=== PATIENT | female | born 1995 | race American Indian/Alaskan Native ===

== ENCOUNTER 2016-12-10 10:47 | Emergency (ER) | payer MEDICAID ==
[2016-12-10 11:23] VITALS: BP 117/76
[2016-12-10 12:04] LABS: Bilirubin,Urine NEG (Negative); Blood,Urine NEG (Negative); Ketones,Urine NEG (Negative); Leukocyte Esterase,Urine NEG (Negative); Mucus,Urine FEW /HPF; Nitrite,Urine NEG (Negative); Protein,Urine <15 mg/dL mg/dL (Negative); Urobilinogen,Urine < 2.0 mg/dL (<2.0)
--- NOTE | 2016-12-10 12:59 | Emergency Department Report ---
ED Headache HPI - General Chief Complaint: Headache Stated Complaint: 8 WKS W/HEAD AND LOWER BACK PAIN Time Seen by Provider: 12/10/16 12:10 - History of Present Illness Initial Comments: Patient comes into the ER today with complaints of a headache and achy back since yesterday. Patient denies any injury. Patient does states that she is 7 or 8 weeks but denies any abdominal pain, vaginal bleeding, discharge. Patient describes the headache as pressure and points to her frontal region for the area of pain. Patient has not taken anything for her discomfort because she was unsure as to what she can take being . Allergies/Adverse Reactions: Allergies Fish Containing Products Allergy (Verified 12/10/16 11:19) Anaphylaxis lactose Allergy (Verified 12/10/16 11:19) Vomiting shellfish derived Allergy (Verified 12/10/16 11:19) Anaphylaxis Home Medications: Ambulatory Orders Acetaminophen [Acetaminophen TAB] 500 mg PO Q4HR PRN #20 tablet 12/10/16 Amoxicillin 1,000 mg PO BID #40 capsule 12/10/16 ED Review of Systems ROS: Stated complaint: 8 WKS W/HEAD AND LOWER BACK PAIN Other details as noted in HPI Constitutional: chills. denies: fever Eyes: denies: eye pain, eye discharge, vision change ENT: congestion. denies: ear pain, throat pain, dental pain, hearing loss, epistaxis Respiratory: denies: cough, shortness of breath, SOB with exertion, wheezing Cardiovascular: denies: chest pain, palpitations Endocrine: no symptoms reported Gastrointestinal: denies: abdominal pain, nausea, vomiting, diarrhea, constipation, hematemesis Genitourinary: denies: urgency, dysuria, hematuria, discharge Musculoskeletal: back pain. denies: joint swelling, arthralgia Skin: denies: rash, lesions Neurological: denies: headache, weakness, paresthesias Psychiatric: denies: anxiety, depression Hematological/Lymphatic: denies: easy bleeding, easy bruising ED Past Medical Hx - Past Medical History Previous Medical History?: No - Surgical History Past Surgical History?: No - Social History Smoking Status: Never Smoker Substance Use Type: None - Medications Home Medications: Home Medications Medication Instructions Recorded Confirmed Last Taken Type Acetaminophen [Acetaminophen TAB] 500 mg PO Q4HR PRN #20 tablet 12/10/16 Unknown Rx Amoxicillin 1,000 mg PO BID #40 capsule 12/10/16 Unknown Rx ED Physical Exam - General Limitations: No Limitations General appearance: alert, in no apparent distress - Head Head exam: Present: atraumatic, normocephalic, normal inspection, other ( bilateral frontal and maxillary tenderness to percussion) - Eye Eye exam: Present: normal appearance, PERRL, EOMI. Absent: conjunctival injection, periorbital swelling, periorbital tenderness Pupils: Present: normal accommodation - ENT ENT exam: Present: mucous membranes moist, normal external ear exam, other ( bilateral air-fluid levels noted to middle ear, bilateral nasal mucosa redness and turbinate swelling, positive posterior pharynx nasal drainage and mild erythematous noted.) - Neck Neck exam: Present: normal inspection, lymphadenopathy (bilateral tonsillar lymphadenopathy and tenderness) - Respiratory Respiratory exam: Present: normal lung sounds bilaterally. Absent: respiratory distress, chest wall tenderness, accessory muscle use, decreased breath sounds - Cardiovascular Cardiovascular Exam: Present: regular rate, normal rhythm, normal heart sounds. Absent: systolic murmur, diastolic murmur, rubs, gallop - GI/Abdominal GI/Abdominal exam: Present: soft, normal bowel sounds. Absent: distended, tenderness, guarding, rebound, rigid - Extremities Exam Extremities exam: Present: normal inspection, full ROM, normal capillary refill. Absent: tenderness, pedal edema, joint swelling, calf tenderness - Back Exam Back exam: Present: normal inspection, full ROM. Absent: tenderness, CVA tenderness (R), CVA tenderness (L), muscle spasm, paraspinal tenderness, vertebral tenderness - Neurological Exam Neurological exam: Present: alert, oriented X3, CN II-XII intact, normal gait, motor sensory deficit. Absent: reflexes normal - Psychiatric Psychiatric exam: Present: normal affect, normal mood - Skin Skin exam: Present: warm, dry, intact, normal color. Absent: rash ED Course Vital Signs 12/10/16 11:19 Temperature 98.9 F Pulse Rate 69 Respiratory 18 Rate Blood Pressure 117/76 O2 Sat by Pulse 100 Oximetry ED Medical Decision Making - Lab Data Lab Results 12/10/16 Range/Units 11:51 Urine Color Yellow (Yellow) Urine Turbidity Clear (Clear) Urine pH 7.0 (5.0-7.0) Ur Specific [place] 1.012 (1.003-1.030) Urine Protein <15 mg/dl (Negative) mg/dL Urine Glucose (UA) Neg (Negative) mg/dL Urine Ketones Neg (Negative) mg/dL Urine Blood Neg (Negative) Urine Nitrite Neg (Negative) Urine Bilirubin Neg (Negative) Urine Urobilinogen < 2.0 (<2.0) mg/dL Ur Leukocyte Esterase Neg (Negative) Urine WBC (Auto) 3.0 (0.0-6.0) /HPF Urine RBC (Auto) 3.0 (0.0-6.0) /HPF U Epithel Cells (Auto) 4.0 (0-13.0) /HPF Urine Mucus Few /HPF Urine HCG, Qual Positive A (Negative) - Medical Decision Making Patient is nontoxic and hemodynamically stable. I believe patient's symptoms are more related to an upper respiratory infection. Patient does have tenderness to sinus percussion as well as nasal signs consistent of sinus infection. Patient has a benign abdominal exam with normal urinalysis. I see no point to obtain blood work today. 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 Patient is in agreement with treatment plan patient is stable for discharge. Critical care attestation.: If time is entered above; I have spent that time in minutes in the direct care of this critically ill patient, excluding procedure time. ED Disposition Clinical Impression: Headache, Sinusitis, Back pain, Disposition: TO HOME OR SELFCARE Is pt being admited?: No Does the pt Need Aspirin: No Condition: Good Instructions: Sinusitis (ED), (ED) Prescriptions: Acetaminophen [Acetaminophen TAB] 500 mg PO Q4HR PRN #20 tablet PRN Reason: Pain Amoxicillin 1,000 mg PO BID #40 capsule Referrals: PRIMARY CAREMD [Primary Care Provider] - 3-5 Days RUSH CLAUDIO MD [Staff Physician] - 3-5 Days Forms: Work/School Release Form(ED) Time of Disposition: 13:17
== END 2016-12-10 13:35 | disposition home or self-care (01) ==
LOC: ED 10:47
DX: O26.891 Other specified pregnancy related conditions, first trimester (principal); R51 Headache; J32.9 Chronic sinusitis, unspecified; Z3A.01 Less than 8 weeks gestation of pregnancy; Z91.013 Allergy to seafood; Z91.011 Allergy to milk products
CPT/HCPCS: 81001; 81025; 99283

== ENCOUNTER 2017-01-28 18:40 | Emergency (ER) | payer MEDICAID, OTHER ==
--- NOTE | 2017-01-28 21:18 | Emergency Department Report ---
HPI - General Chief Complaint: Multiple Trauma Time Seen by Provider: 01/28/17 20:51 - HPI HPI: PATIENT STATES SHE IS 14 WEEKS GA, SHE TRIPPED AND FELL DOWN SOME STEPS, C/O PAIN IN FACE AND PELVIC AREA. PATIENT DENIES ANY VAGINAL BLEEDING OR BACK PAIN. PATIENT HAS BEEN AMBULATING SINCE FALL. ED Past Medical Hx - Past Medical History Previous Medical History?: No - Surgical History Past Surgical History?: No - Social History Smoking Status: Never Smoker Substance Use Type: None - Medications Home Medications: Home Medications Medication Instructions Recorded Confirmed Last Taken Type RX: Acetaminophen [Acetaminophen 500 mg PO Q4HR PRN #20 tablet 12/10/16 Unknown Rx TAB] RX: Amoxicillin 1,000 mg PO BID #40 capsule 12/10/16 01/29/17 Unknown Rx ED Review of Systems ROS: Stated complaint: 14WKS/LOW ABD PAIN Other details as noted in HPI Comment: All other systems reviewed and negative Constitutional: no symptoms reported Respiratory: no symptoms reported Physical Exam - Physical Exam Vital Signs: Vital Signs 01/28/17 01/28/17 01/28/17 18:48 20:20 20:30 Temperature 98.8 F Pulse Rate 110 H 101 H 91 H Respiratory 16 12 10 L Rate Blood Pressure 119/68 121/76 Blood Pressure [Left] O2 Sat by Pulse 98 96 Oximetry 01/28/17 20:39 Temperature 98.5 F Pulse Rate 91 H Respiratory 16 Rate Blood Pressure Blood Pressure 107/64 [Left] O2 Sat by Pulse 100 Oximetry Physical Exam: GENERAL: The patient is well-developed well-nourished. HEENT: Normocephalic. Atraumatic. Extraocular motions are intact. Patient has moist mucous membranes. NECK: Supple. No meningitic signs are noted. There is no adenopathy noted. CHEST/LUNGS: Clear to auscultation. There is no respiratory distress noted. HEART/CARDIOVASCULAR: Regular. There is no tachycardia. There is no gallop rub or murmur. ABDOMEN: Abdomen is soft, nontender. Patient has normal bowel sounds. There is no abdominal distention. SKIN: There is no rash. There is no edema. There is no diaphoresis. NEURO: The patient is awake, alert, and oriented. The patient is cooperative. The patient has no focal neurologic deficits. The patient has normal speech and gait. Cranial nerves II through XII grossly intact, no drift. Negative Romberg MUSCULOSKELETAL: good rom in all ext ED Course Vital Signs 01/28/17 01/28/17 01/28/17 18:48 20:20 20:30 Temperature 98.8 F Pulse Rate 110 H 101 H 91 H Respiratory 16 12 10 L Rate Blood Pressure 119/68 121/76 Blood Pressure [Left] O2 Sat by Pulse 98 96 Oximetry 01/28/17 20:39 Temperature 98.5 F Pulse Rate 91 H Respiratory 16 Rate Blood Pressure Blood Pressure 107/64 [Left] O2 Sat by Pulse 100 Oximetry ED Medical Decision Making - Lab Data Result diagrams: 01/28/17 21:09 01/28/17 21:09 Critical care attestation.: If time is entered above; I have spent that time in minutes in the direct care of this critically ill patient, excluding procedure time. ED Disposition Clinical Impression: Traumatic injury during in second trimester Disposition: DC-01 TO HOME OR SELFCARE Is pt being admited?: No Does the pt Need Aspirin: No Condition: Stable Referrals: PRIMARY CARE [Primary Care Provider] - 3-5 Days
[2017-01-28 21:36] LABS: Basophils % (Auto) 0.1 % (0.0-1.8); Eosinophils % (Auto) 0.2 % (0.0-4.3); Hematocrit 36.5 % (30.3-42.9); Mean Corpuscular HGB Conc 33 % (30-34); Mean Corpuscular Hemoglobin 26 pg (28-32); Mean Corpuscular Volume 81 fl (79-97); Platelet Count 376 K/mm3 (140-440); Red Blood Count 4.53 M/mm3 (3.65-5.03); Red Cell Distribution Width 14.2 % (13.2-15.2); White Blood Count 18.1 K/mm3 (4.5-11.0)
[2017-01-28 21:42] LABS: Alanine Aminotransferase 52 units/L (7-56); Albumin 3.5 g/dL (3.9-5); Albumin/Globulin Ratio 0.9 %; Alkaline Phosphatase 96 units/L (35-129); Anion Gap 18 mmol/L; BUN/Creatinine Ratio 8.33; Blood Urea Nitrogen 5 mg/dL (7-17); Calcium 8.7 mg/dL (8.4-10.2); Carbon Dioxide 21 mmol/L (22-30); Chloride 103.7 mmol/L (98-107); Glucose 74 mg/dL (65-100); Potassium 3.8 mmol/L (3.6-5.0); Sodium 139 mmol/L (137-145); Total Protein 7.3 g/dL (6.3-8.2)
--- NOTE | 2017-01-28 23:29 | Ultrasound Report ---
FINAL REPORT PROCEDURE: Transabdominal obstetrical ultrasound. TECHNIQUE: Real-time transabdominal sonography of the uterus, placenta, amniotic fluid, adnexa, and fetus was performed with image documentation. Measurements were obtained to determine age/size. M-mode Doppler was used to document heartbeat. CPT 76931 HISTORY: Patient fell, pelvic pain, . COMPARISON: No prior studies are available for comparison. FINDINGS: There is an intrauterine fetus in breech presentation. Cardiac activity is documented at 186 beats per minute. The amniotic fluid volume appears normal. The placenta is anterior in location. The cervix measures 3.9 centimeters in length. There is a small amount of fluid within the endocervical canal. The measured parameters are as follows: Biparietal diameter 2.6 centimeters, head circumference 9.9 centimeters, abdominal circumference 8.4 centimeters, femur length 1.4 centimeters. The calculated menstrual age by ultrasound is 14 weeks 4 days. The estimated date of confinement is 07/25/2017. IMPRESSION: Viable intrauterine in breech presentation with a menstrual age of 14 weeks 4 days.
--- NOTE | 2017-01-28 23:30 | Ultrasound Report ---
FINAL REPORT PROCEDURE: Transvaginal obstetrical ultrasound. TECHNIQUE: Real-time transvaginal sonography of the uterus, placenta, amniotic fluid, adnexa, and fetus was performed with image documentation. Measurements were obtained to determine age/size. M-mode Doppler was used to document heartbeat. CPT 48357 HISTORY: , pelvic pain after falling. COMPARISON: No prior studies are available for comparison. FINDINGS: The cervix measures 3.8 centimeters in length. There is a tiny amount of fluid within the endocervical canal. There is an intrauterine fetus in breech presentation. IMPRESSION: Intrauterine fetus in breech presentation. Small amount of fluid within the endocervical canal.
[2017-01-29] MEDS ORDERED: TYLENOL #3 PO ONE (00:13)
[2017-01-29 01:24] VITALS: BP 120/70
== END 2017-01-29 01:23 | disposition home or self-care (01) ==
LOC: ED 18:40
DX: O26.891 Other specified pregnancy related conditions, first trimester (principal); R10.2 Pelvic and perineal pain; R51 Headache; Z91.011 Allergy to milk products; Z91.013 Allergy to seafood; Z3A.14 14 weeks gestation of pregnancy; W10.9XXA Fall (on) (from) unspecified stairs and steps, initial encounter; Y93.89 Activity, other specified; Y92.89 Other specified places as the place of occurrence of the external cause; Y99.8 Other external cause status
CPT/HCPCS: 36415; 76805; 76817; 80053; 84702; 85025

== ENCOUNTER 2017-06-24 12:07 | Outpatient (CLI) | payer OTHER ==
[2017-06-24] MEDS ORDERED: LACTATED RINGERS 1,000 ML IV SCH (15:00)
[2017-06-24] MEDS ORDERED: BRETHINE IVP ONE (16:26)
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
[2017-06-24 20:31] VITALS: BP 119/59
== END 2017-06-24 17:59 | disposition home or self-care (01) ==
LOC: EDSTATUS 14:31 → LDOR 14:35 → TRG 14:36 → LDOR 17:59
PROVIDERS: ATTEND Obstetrics & Gynecology
DX: O26.893 Other specified pregnancy related conditions, third trimester (principal); R10.9 Unspecified abdominal pain; O32.8XX0 Maternal care for other malpresentation of fetus, not applicable or unspecified; V89.2XXA Person injured in unspecified motor-vehicle accident, traffic, initial encounter; Z3A.33 33 weeks gestation of pregnancy; Y93.89 Activity, other specified; Y92.89 Other specified places as the place of occurrence of the external cause; Y99.8 Other external cause status
CPT/HCPCS: 59025; 76816; 96360; 96372; J3105; J7120

== ENCOUNTER 2017-07-12 11:49 | Outpatient (CLI) | payer OTHER ==
[2017-07-12 12:26] VITALS: BP 116/79
== END 2017-07-12 14:00 | disposition home or self-care (01) ==
LOC: TRG 11:49
PROVIDERS: ATTEND Obstetrics & Gynecology
DX: O47.1 False labor at or after 37 completed weeks of gestation (principal); Z3A.38 38 weeks gestation of pregnancy
CPT/HCPCS: 59025

== ENCOUNTER 2017-07-12 15:53 | Outpatient (CLI) | payer OTHER ==
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
[2017-07-12 19:11] VITALS: BP 128/81
== END 2017-07-12 20:05 | disposition home or self-care (01) ==
LOC: TRG 15:53 → LD 16:02 → TRG 20:05
PROVIDERS: ATTEND Obstetrics & Gynecology
DX: O47.1 False labor at or after 37 completed weeks of gestation (principal); O26.893 Other specified pregnancy related conditions, third trimester; V89.2XXA Person injured in unspecified motor-vehicle accident, traffic, initial encounter; Z3A.38 38 weeks gestation of pregnancy; Y93.89 Activity, other specified; Y92.89 Other specified places as the place of occurrence of the external cause; Y99.8 Other external cause status
CPT/HCPCS: 76815

== ENCOUNTER 2017-07-18 14:22 | Outpatient (CLI) | payer OTHER ==
[2017-07-18 14:44] VITALS: BP 134/82
== END 2017-07-18 18:34 | disposition home or self-care (01) ==
LOC: TRG 14:22
PROVIDERS: ATTEND Obstetrics & Gynecology
DX: O47.1 False labor at or after 37 completed weeks of gestation (principal); Z3A.38 38 weeks gestation of pregnancy
CPT/HCPCS: 59025

== ENCOUNTER 2017-07-19 12:22 | Inpatient (IN) | payer OTHER ==
[2017-07-19] MEDS ORDERED: BRETHINE IVP PRN (14:03)
[2017-07-19] MEDS ORDERED: MINERAL OIL PO PRN (14:03)
[2017-07-19] MEDS ORDERED: SUBLIMAZE IV PRN (14:03)
[2017-07-19] MEDS ORDERED: XYLOCAINE 2% INFILTRATI ONE (14:03)
[2017-07-19] MEDS ORDERED: ePHEDrine SULFATE IV PRN ×2 (14:03→18:02)
[2017-07-19] MEDS ORDERED: BRETHINE SUB-Q PRN (14:03)
--- NOTE | 2017-07-19 14:03 | History and Physical Report ---
History of Present Illness Date of examination: 07/19/17 Date of admission: 07/19/17 12:22 Chief complaint: SROM History of present illness: 21yo G 1 P 0 0 0 0 here from [facility] for SROM since 09:00 and active labor. She reports positive FMs and ctxs every 3mins. 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 She denies any herpes outbreak. Her GBS is negative. 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) Family/Genetic History: none Social history: no significant social history - Obstetrical History Expected Date of Delivery: 07/26/17 Actual Gestation: 39 Week(s) 0 Day(s) : 1 Para: 0 Hx # Term Pregnancies: 0 Number of Pregnancies: 0 Spontaneous Abortions: 0 Induced : 0 Number of Living Children: 0 Medications and Allergies Allergies Allergy/AdvReac Type Severity Reaction Status Date / Time Fish Containing Products Allergy Anaphylaxis Verified 01/28/17 18:48 lactose Allergy Vomiting Verified 01/28/17 18:48 shellfish derived Allergy Anaphylaxis Verified 01/28/17 18:48 Home Medications Medication Instructions Recorded Confirmed Last Taken Type Acetaminophen [Acetaminophen TAB] 500 mg PO Q4HR PRN #20 tablet 12/10/16 Unknown Rx Amoxicillin 1,000 mg PO BID #40 capsule 12/10/16 01/29/17 Unknown Rx Review of Systems All systems: negative - Vital Signs Vital signs: Vital Signs Pulse BP 81 130/91 07/19/17 13:22 07/19/17 13:22 Temp Pulse Resp BP Pulse Ox 81 130/91 07/19/17 13:22 07/19/17 13:22 - Physical Exam Cardiovascular: Regular rate, Normal S1, Normal S2, No murmurs Lungs: Positive: Clear to auscultation, Normal air movement Abdomen: Positive: normal appearance, soft Genitourinary (Female): Positive: normal external genitalia, normal perenium Vulva: both: normal Vagina: Positive: normal moisture. Negative: ulceration Uterus: Positive: normal size, normal contour Anus/Rectum: Positive: normal perianal skin Extremities: Positive: normal Deep Tendon Reflex Grade: Normal +2 - Obstetrical FHR: auscultation normal, category 1 FHR comments: baseline 120, moderate variability, 15x15 accels, no decels Uterine Contraction Monitor Mode: External Cervical Dilatation: 4.5 Cervical Effacement Percentage: 90 station: -2 Uterine Contraction Frequency (min): 2 - 5 Uterine Contraction Pattern: Regular Results Result Diagrams: 07/19/17 13:35 All other labs normal. Assessment and Plan - Patient Problems (1) Spontaneous rupture of amniotic membranes Current Visit: Yes Status: Acute Plan to address problem: Admit to L&D with routine labor orders May get epidural anesthesia for labor pain management If no cervical change, will start oxytocin for labor augmentation Anticipate vaginal delivery (2) 39 weeks gestation of Current Visit: Yes Status: Acute (3) Active labor at term Current Visit: Yes Status: Acute
[2017-07-19 14:41] LABS: Hematocrit 37.8 % (30.3-42.9); Hemoglobin 12.7 gm/dl (10.1-14.3); Mean Corpuscular HGB Conc 34 % (30-34); Mean Corpuscular Hemoglobin 27 pg (28-32); Mean Corpuscular Volume 80 fl (79-97); Platelet Count 306 K/mm3 (140-440); Red Blood Count 4.75 M/mm3 (3.65-5.03)
[2017-07-19] MEDS ORDERED: PITOCin/NS 30 UNIT/500ML 30 UNITS/500 ML BAG IV SCH ×2 (15:00)
[2017-07-19] MEDS ORDERED: PITOCin/NS 20 UNIT/1000ML DRIP 20 UNITS/1,000 ML BAG IV SCH (15:00)
[2017-07-19] MEDS: LACTATED RINGERS 1,000 ML IV SCH ×4 (15:45→21:52)
[2017-07-19] MEDS ORDERED: NARCAN 2 MG/2 ML IV PRN (18:02)
--- NOTE | 2017-07-19 18:43 | Anesthesia Consultation ---
Anesthesia Consult and Med Hx Date of service: 07/19/17 - Airway Anesthetic Teeth Evaluation: Good ROM Head & Neck: Adequate Mental/Hyoid Distance: Adequate Mallampati Class: Class II Intubation Access Assessment: Probably Good - Pulmonary Exam CTA: Yes - Cardiac Exam Cardiac Exam: RRR - Pre-Operative Health Status ASA Pre-Surgery Classification: ASA2 Proposed Anesthetic Plan: Epidural - Pulmonary Hx Smoking: No Hx Asthma: No - Cardiovascular System Hx Hypertension: No - Central Nervous System Hx Seizures: No Hx Psychiatric Problems: No - Endocrine Hx Renal Disease: No Hx Hypothyroidism: No Hx Hyperthyroidism: No - Hematic Hx Anemia: No Hx Sickle Cell Disease: No - Other Systems Hx Alcohol Use: No
[2017-07-19] MEDS ORDERED: fentaNYL-BUPIV 2 MCG/ML-0.125% 200 MCG/100 ML BAG EPIDURAL SCH (19:00)
[2017-07-19] MEDS ORDERED: ZOFRAN IV PRN (20:12)
[2017-07-19] MEDS ORDERED: ZOFRAN ONE (20:15)
[2017-07-19] MEDS ORDERED: NACL 0.9% 1000 ML 1,000 ML ONE (23:11)
--- NOTE | 2017-07-19 23:43 | Event Note ---
Date: 07/19/17 S: Pt lying in bed in right lateral position. Denies any pain s/p epidural anesthesia. Family members at bedside. O: BP 123/67, HR 72, pulse ox 100% Oxygen via non-rebreather mask @ 10L/min Oxytocin @ 8 mu/min FHR 130, moderate variability, + accels, recurrent variable decels ctxs q1-3 mins, palpate moderate SVE 6/90/-2/vtx/meconium A: 21yo G 1 P 0 0 0 0 @ 39 weeks 0 day by LMP Category II FHR SROM - meconium P: IUPC inserted Start amnioinfusion with normal saline 300ml bolus then 100 ml/hr Continue lateral positioning Continue oxygen administration Dr. Hernandez consulted who agreed with plan of care and recommended c/s if nonreactive FHR persists
[2017-07-20] MEDS ORDERED: TUCKS PAD TP PRN (00:29)
[2017-07-20] MEDS ORDERED: PHENERGAN PO PRN (00:29)
[2017-07-20] MEDS ORDERED: NORCO 5/325 PO PRN (00:29)
[2017-07-20] MEDS ORDERED: LANSINOH TP PRN (00:29)
[2017-07-20] MEDS ORDERED: DULCOLAX PR PRN (00:29)
[2017-07-20] MEDS ORDERED: PHENERGAN PR PRN (00:29)
[2017-07-20] MEDS ORDERED: MILK OF MAGNESIA PO PRN (00:29)
[2017-07-20] MEDS ORDERED: BENADRYL PO PRN (00:29)
[2017-07-20] MEDS ORDERED: TYLENOL PO PRN (00:29)
--- NOTE | 2017-07-20 00:49 | Procedure Note ---
OB Delivery Note - Delivery Date of Delivery: 07/19/17 (23:49) Surgeon: XAVIER CUETO Estimated blood loss: 200cc - Vaginal Delivery presentation: vertex Delivery position: OA Intrapartum events: meconium, mult.variable deceleratio Delivery induction: none Delivery augmentation: pitocin Delivery monitor: external FHT, external uterine, internal uterine Route of delivery: Delivery placenta: spontaneous (23:55) Delivery cord: 3 umbilical vessels Episiotomy: none Delivery laceration: 1st degree (vaginal) Delivery repair: vicryl (3-0 ) Anesthesia: epidural Delivery comments: of a less vigorous term male at 23:49 on 07/19/17. Baby placed on maternal abdomen, dried and bulb-suctioned by RN prior to NICU team arrival. Umbilical cord double-clamped and cut by FOB. Spontaneous delivery of placenta papito- side presenting at 23:55. Moderate lochia noted. Fundal massage and IV pitocin bolus initiated. Fundus F/ML/U-3 with light lochia. Perineum intact. 1st degree vaginal laceration noted and repaired with one stitch using 3-0 vicryl needle under epidural anesthesia. Pt tolerated the procedure well. Placenta intact; was discarded. Mom and baby in stable condition. - Infant A at 1 minute: 7 at 5 minutes: 9 Infant Gender: Male (6lbs 2oz (2769g); 19 in)
[2017-07-20] MEDS ORDERED: SODIUM CHLORIDE FLUSH SYRINGE 10 ML IV NR (01:00)
[2017-07-20] MEDS ORDERED: NACL 0.9% 1000 ML VG SCH (04:00)
[2017-07-20] MEDS: MOTRIN PO SCH ×3 (05:34→18:10)
--- NOTE | 2017-07-20 09:52 | Progress Note ---
Assessment and Plan A: PPD#1 s/p Stable P: Routine PP care plan discharge home in am Subjective - Subjective Date of service: 07/20/17 (0945) Principal diagnosis: PPD#1 s/p Patient reports: appetite normal, voiding normally, pain well controlled, flatus , ambulating normally Fonda: doing well, nursing well Objective - Vital Signs Latest vital signs: Vital Signs Temp Pulse Resp BP BP Pulse Ox 07/20/17 05:00 98.1 F 69 18 139/89 100 07/20/17 02:10 98.6 F 87 16 122/72 100 07/20/17 01:22 77 100 07/20/17 01:20 81 138/83 07/20/17 01:17 80 98 07/20/17 01:12 75 100 07/20/17 01:09 81 93 07/20/17 01:07 76 99 07/20/17 01:06 78 137/81 07/20/17 01:02 75 100 07/20/17 00:57 66 99 07/20/17 00:52 69 98 07/20/17 00:51 69 133/78 07/20/17 00:47 70 100 07/20/17 00:42 75 100 07/20/17 00:37 69 100 07/20/17 00:35 81 145/87 07/20/17 00:32 81 98 07/20/17 00:27 98 H 100 07/20/17 00:22 99 H 100 07/20/17 00:20 77 143/83 07/20/17 00:17 87 100 07/19/17 23:59 117 H 100 07/19/17 23:54 134 H 100 07/19/17 23:49 109 H 100 07/19/17 23:44 90 121/79 100 07/19/17 23:39 86 100 07/19/17 23:34 71 100 07/19/17 23:29 68 100 07/19/17 23:24 73 100 07/19/17 23:19 71 100 07/19/17 23:14 72 123/67 100 07/19/17 23:09 76 87 07/19/17 23:04 88 100 07/19/17 22:59 95 H 100 07/19/17 22:54 103 H 100 07/19/17 22:49 86 100 07/19/17 22:44 102 H 100 0218 22:43 93 H 134/90 02 22:39 92 H 99 02 22:34 108 H 100 0218 22:29 81 99 0218 22:24 90 98 07/19/17 22:19 78 99 02 22:14 69 99 02 22:13 76 125/85 02 22:09 95 H 99 02 22:04 93 H 99 0218 21:59 81 100 02 21:54 76 100 07/19/17 21:49 81 100 07/19/17 21:44 111 H 129/81 99 02 21:39 77 99 02 21:34 78 100 07/19/17 21:29 78 99 07/19/17 21:24 84 100 07/19/17 21:19 77 99 07/19/17 21:15 81 129/90 07/19/17 21:14 79 99 02 21:09 79 100 07/19/17 21:04 100 H 100 07/19/17 20:59 84 100 07/19/17 20:54 118 H 99 07/19/17 20:49 80 100 07/19/17 20:44 80 99 18 20:43 84 124/82 07/19/17 20:39 92 H 99 07/19/17 20:34 87 99 07/19/17 20:29 79 99 07/19/17 20:24 91 H 99 07/19/17 20:22 105 H 129/91 07/19/17 20:19 112 H 99 02 20:15 115 H 139/99 07/19/17 20:14 102 H 99 07/19/17 20:09 80 124/85 100 18 20:04 80 100 0218 19:59 95 H 98 18 19:54 88 100 07/19/17 19:49 93 H 100 18 19:44 110 H 100 07/19/17 19:39 115 H 99 07/19/17 19:34 107 H 100 07/19/17 19:29 87 127/92 100 02/12/18 19:28 97.1 F L 104 H 18 127/92 100 07/19/17 19:24 111 H 100 07/19/17 19:19 101 H 100 07/19/17 19:14 104 H 126/84 100 07/19/17 19:08 108 H 134/89 07/19/17 19:06 75 132/84 07/19/17 19:04 70 134/79 07/19/17 19:02 76 131/90 07/19/17 19:00 72 128/85 07/19/17 18:58 73 131/80 07/19/17 18:56 87 132/85 07/19/17 18:54 88 137/92 07/19/17 18:50 69 140/84 07/19/17 18:48 75 143/87 07/19/17 18:46 70 139/83 07/19/17 18:44 72 139/82 07/19/17 18:42 72 141/88 07/19/17 18:40 75 137/85 07/19/17 18:38 75 130/87 07/19/17 18:36 86 139/93 07/19/17 18:34 90 139/94 07/19/17 18:32 86 132/86 07/19/17 18:30 78 132/91 07/19/17 18:28 78 133/87 07/19/17 18:26 75 139/91 07/19/17 18:24 71 142/79 07/19/17 18:15 90 146/76 07/19/17 13:22 81 130/91 Intake and Output 07/19/17 07/20/17 07/20/17 23:59 07:59 15:59 Intake Total 774.383 240 Output Total 400 700 Balance 774.383 -160 -700 Intake: IV 774.383 Lactated Ringers 1,000 ml 764.583 @ 125 mls/hr IV DIRECT YOHANNES Rx#:[id number] PITOCin/NS 30 UNIT/500ML 9.800 30 units In 500 ml @ 1 MILLIUNITS/MIN 1 mls/hr IV TITR YOHANNES Rx#:[id number] Oral 240 Output: Urine 400 700 Void 400 700 Other: Total, Intake Amount 240 Total, Output Amount 400 700 Weight 79.379 kg Estimated Blood Loss 200 - Exam Breasts: Present: normal, Cardiovascular: Present: Regular rate, Normal S1, Normal S2 Lungs: Present: Clear to auscultation, Normal air movement Abdomen: Present: normal appearance, soft Vulva: both: laceration/episiotomy (1st degree well approximated) Uterus: Present: normal, firm, fundal height below umbilicus (-1) Extremities: Present: normal Deep Tendon Reflex Grade: Normal +2 - Labs Labs: Abnormal lab results 07/19/17 Range/Units 13:35 WBC 13.0 H (4.5-11.0) K/mm3 MCH 27 L (28-32) pg
--- NOTE | 2017-07-20 09:52 | Discharge Summary ---
Providers - Providers Date of Admission: 07/19/17 12:22 Date of discharge: 07/21/17 Attending physician: TANYA HERRERA MD Primary care physician: TANYA HERRERA MD Hospitalization Reason for admission: active labor, IUP at term Delivery: Procedure details: See delivery note Episiotomy: none Laceration: 1st degree (well approximated) Other procedures: none complications: none Discharge diagnosis: IUP at term delivered [place] baby: male Hospital course: uneventful Condition at discharge: Good Disposition: [id number] TO HOME OR SELFCARE Plan - Provider Discharge Summary Activity: no sex for 6 weeks, no heavy lifting 4 weeks Diet: routine Instructions: routine Additional instructions: [] Smoking cessation referral if applicable(refer to patient education folder for contact #) [] Refer to [facility] Booklet Call your doctor immediately for: * Fever > 100.5 * Heavy vaginal bleeding ( >1 pad per hour) * Severe persistent headache * Shortness of breath * Reddened, hot, painful area to leg or breast * Drainage or odor from incision. * Keep incision clean and dry at all times and follow doctor's instructions regarding bathing/showering - Follow up plan Follow up: TANYA HERRERA MD [Primary Care Provider] - 7 Days
[2017-07-20 11:23] LABS: Hematocrit 33.7 % (30.3-42.9); Hemoglobin 11.4 gm/dl (10.1-14.3)
[2017-07-20] MEDS ORDERED: Fluarix Quad 2017-2018(36 MOS+ IM ONE (12:00)
[2017-07-20] MEDS: PRENATAL VITAMIN PO SCH (12:08)
[2017-07-21] MEDS: MOTRIN PO SCH ×4 (00:10→16:03)
[2017-07-21] MEDS ORDERED: Fluarix Quad 2017-2018(36 MOS+ IM ONE (12:00)
[2017-07-21] MEDS: PRENATAL VITAMIN PO SCH (14:25)
[2017-07-21 15:29] LABS: Bacteria,Urine 1+ /HPF (Negative); Bilirubin,Urine NEG (Negative); Blood,Urine LG (Negative); Color,Urine Yellow (Yellow); Mucus,Urine FEW /HPF; Nitrite,Urine NEG (Negative); Protein,Urine <15 mg/dL mg/dL (Negative); Urobilinogen,Urine < 2.0 mg/dL (<2.0)
[2017-07-21 15:37] LABS: Hematocrit 34.1 % (30.3-42.9); Hemoglobin 11.5 gm/dl (10.1-14.3); Mean Corpuscular HGB Conc 34 % (30-34); Mean Corpuscular Hemoglobin 27 pg (28-32); Mean Corpuscular Volume 80 fl (79-97); Platelet Count 282 K/mm3 (140-440); Red Blood Count 4.29 M/mm3 (3.65-5.03); Red Cell Distribution Width 14.6 % (13.2-15.2)
[2017-07-21 16:01] LABS: Alanine Aminotransferase 18 units/L (7-56); Uric Acid 6.3 mg/dL (3.5-7.6)
[2017-07-21 18:01] VITALS: BP 120/78
== END 2017-07-21 19:00 | disposition home or self-care (01) | DRG 774 ==
LOC: LD 12:22 → OB 07-20 02:05
PROVIDERS: ADMIT Obstetrics & Gynecology; ATTEND Obstetrics & Gynecology
PROC: 10E0XZZ Delivery of Products of Conception, External Approach (ICD-10-PCS; principal; 2017-07-19)
PROC: 0HQ9XZZ Repair Perineum Skin, External Approach (ICD-10-PCS; 2017-07-19)
PROC: 3E0234Z Introduction of Serum, Toxoid and Vaccine into Muscle, Percutaneous Approach (ICD-10-PCS; 2017-07-19)
PROC: 3E0R3BZ Introduction of Anesthetic Agent into Spinal Canal, Percutaneous Approach (ICD-10-PCS; 2017-07-19)
PROC: 00HU33Z Insertion of Infusion Device into Spinal Canal, Percutaneous Approach (ICD-10-PCS; 2017-07-19)
DX: O76 Abnormality in fetal heart rate and rhythm complicating labor and delivery (principal); O98.52 Other viral diseases complicating childbirth; Z3A.39 39 weeks gestation of pregnancy; Z37.0 Single live birth; Z23 Encounter for immunization; Z88.8 Allergy status to other drugs, medicaments and biological substances; Z91.013 Allergy to seafood; O77.0 Labor and delivery complicated by meconium in amniotic fluid; B00.9 Herpesviral infection, unspecified; O36.5930 Maternal care for other known or suspected poor fetal growth, third trimester, not applicable or unspecified; O70.0 First degree perineal laceration during delivery
CPT/HCPCS: 36415; 81001; 82565; 83615; 84450; 84460; 84550; 85014; 85018; 85027; 86592; 86850; 86900; 86901; 90686; 99211; A6250; G0463; J2405; J2590; J7030; J7120

== ENCOUNTER 2017-10-31 12:28 | Emergency (ER) | payer OTHER ==
[2017-10-31 12:39] VITALS: BP 125/73
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
[2017-10-31] MEDS ORDERED: MOTRIN PO ONE (14:22)
== END 2017-10-31 15:23 | disposition home or self-care (01) ==
LOC: ED 12:28
DX: S39.012A Strain of muscle, fascia and tendon of lower back, initial encounter (principal); S13.4XXA Sprain of ligaments of cervical spine, initial encounter; Z91.013 Allergy to seafood; Z91.011 Allergy to milk products; V87.7XXA Person injured in collision between other specified motor vehicles (traffic), initial encounter; Y93.89 Activity, other specified; Y99.8 Other external cause status; Y92.410 Unspecified street and highway as the place of occurrence of the external cause
CPT/HCPCS: 99282

== ENCOUNTER 2020-09-22 20:25 | Outpatient (CLI) | payer MEDICAID ==
[2020-09-22 20:45] VITALS: BP 120/73
[2020-09-22 21:19] LABS: Bilirubin,Urine NEG (Negative); Blood,Urine NEG (Negative); Color,Urine Yellow (Yellow); Protein,Urine <15 mg/dL mg/dL (Negative); Urobilinogen,Urine < 2.0 mg/dL (<2.0)
[2020-09-22] MEDS ORDERED: LACTATED RINGERS 1,000 ML IV ONE (21:50)
[2020-09-22] MEDS ORDERED: ONDANSETRON 4 MG/2 ML INJ IV ONE (21:50)
[2020-09-22] MEDS ORDERED: PANTOPRAZOLE 40 MG INJ IV ONE (21:52)
== END 2020-09-23 00:04 | disposition home or self-care (01) ==
LOC: TRG 20:25 → APU 20:32 → TRG 09-23 00:04
PROVIDERS: ATTEND Obstetrics & Gynecology
DX: O21.2 Late vomiting of pregnancy (principal); O26.893 Other specified pregnancy related conditions, third trimester; R51.9 Headache, unspecified; Z3A.32 32 weeks gestation of pregnancy
CPT/HCPCS: 59025; 81001; 96365; 96368; C9113; J2405; J7120; 96360; 96374; 96376

== ENCOUNTER 2020-10-09 18:51 | Outpatient (CLI) | payer MEDICAID ==
[2020-10-09 19:59] VITALS: BP 125/70
[2020-10-09] MEDS ORDERED: LACTATED RINGERS 1,000 ML IV ONE (20:11)
== END 2020-10-09 20:10 | disposition home or self-care (01) ==
LOC: TRG 18:51 → APU 18:54 → TRG 20:10
PROVIDERS: ATTEND Obstetrics & Gynecology
DX: Z34.93 Encounter for supervision of normal pregnancy, unspecified, third trimester (principal); Z3A.31 31 weeks gestation of pregnancy
CPT/HCPCS: 59025

== ENCOUNTER 2020-11-29 19:52 | Inpatient (IN) | payer MEDICAID ==
--- NOTE | 2020-11-29 23:26 | Ultrasound Report ---
ULTRASOUND BIOPHYSICAL PROFILE INDICATION / CLINICAL INFORMATION: BPP. COMPARISON: None available. FINDINGS: BREATHING MOVEMENT = 0 GROSS BODY MOVEMENT = 2 TONE = 2 QUALITATIVE AMNIOTIC FLUID VOLUME = 2 TOTAL BIOPHYSICAL SCORE = 01/12 AMNIOTIC FLUID INDEX (cm) = 6.6, low PRESENTATION: Cephalic. HEART RATE (beats per minute): 141 IMPRESSION: 1. biophysical profile = 11/12 Signer Name: Jose Muro MD Signed: 11/29/2020 11:22 PM Workstation Name: [id number]
[2020-11-29] MEDS ORDERED: ACETAMINOPHEN 325 MG TAB PO PRN (23:31)
[2020-11-29] MEDS ORDERED: LACTATED RINGERS 1,000 ML IV ONE (23:41)
--- NOTE | 2020-11-30 | History and Physical Report ---
History of Present Illness Date of examination: 11/29/20 Date of admission: 11/29/2020 Chief complaint: Contractions History of present illness: 25 year old presents at 39 2/7 weeks gestation complaining of contractions. Patient was found not to be in active labor. But several FHR decelerations noted on EFM and BPP 6/8 and LUNA 6.6 cm. Patient to have continuous EFM and to recheck cervix as needed. False labor vs. early labor. records are not available but patient states she has been receiving care at [facility]. Will request records when office opens tomorrow morning. When records are received to confirm EDC, may augment labor. EDC 12/05/20 per patient self report. Past History Past Medical History: no pertinent history Past Surgical History: no surgical history [facility] ED[facility] DIRECT[facility] History: denies: abnormal PAP smear, chlamydia, gonorrhea, hepatitis C, herpes, HIV, syphilis, trichomonas Family/Genetic History: none Social history: lives with family, full code. denies: smoking, alcohol abuse, prescription drug abuse, IV drug use - Obstetrical History Expected Date of Delivery: 12/05/20 Actual Gestation: 39 Week(s) 2 Day(s) : 2 Para: 1 Hx # Term Pregnancies: 1 Number of Pregnancies: 0 Spontaneous Abortions: 0 Induced : 0 Number of Living Children: 1 Medications and Allergies Allergies Allergy/AdvReac Type Severity Reaction Status Date / Time Fish Containing Products Allergy Anaphylaxis Verified 10/31/17 12:37 lactose Allergy Vomiting Verified 10/31/17 12:37 shellfish derived Allergy Anaphylaxis Verified 10/31/17 12:37 Home Medications Medication Instructions Recorded Confirmed Last Taken Type Ondansetron HCl [Zofran] 4 mg PO Q4HR PRN 15 Days #40 tablet 09/23/20 Unknown Rx Docusate Sodium [Colace] 100 mg PO BID PRN #30 capsule 10/09/20 Unknown Rx Active Meds: Active Medications Acetaminophen (Acetaminophen 325 Mg Tab) 650 mg PO Q4H PRN PRN Reason: Pain MILD(1-3)/Fever >100.5/MCCORMACK Lactated Ringer's (Lactated Ringers) 1,000 mls @ 125 mls/hr IV DIRECT YOHANNES Lactated Ringer's (Lactated Ringers) 1,000 mls @ 999 mls/hr IV BOLUS ONE Stop: 11/30/20 00:41 Multivitamins/Iron/Calcium ( [id number]-[id number] Fumarate-Folic Acid Vit Tab) 1 each PO QDAY [facility] Review of Systems All systems: negative - Vital Signs Vital signs: Vital Signs Temp Pulse Resp BP 98.8 F 88 18 125/80 11/29/20 20:30 11/29/20 20:30 11/29/20 20:30 11/29/20 20:30 Temp Pulse Resp BP Pulse Ox 98.8 F 88 18 125/80 11/29/20 20:30 11/29/20 20:30 11/29/20 20:30 11/29/20 20:30 - Physical Exam Abdomen: Positive: normal appearance, soft. Negative: distention, tenderness, guarding, rigidity Genitourinary (Female): Positive: normal external genitalia, normal perenium. Negative: perineal/vulvar lesions Vagina: Positive: normal moisture Uterus: Positive: enlarged. Negative: tender Anus/Rectum: Positive: normal perianal skin Extremities: Negative: tenderness, edema - Obstetrical Uterine Contraction Monitor Mode: External Cervical Dilatation: 1.5 Cervical Effacement Percentage: 50 station: -3 Results All other labs normal. Assessment and Plan A: at 39 weeks, 2 days gestation. Variable FHR deceleration. BPP 6/8; LUNA 6.6 cm. P: Admit. Continuous EFM. Obtain records from [facility] as soon as office opens this morning. Further management plan after confirmation of EDC.
[2020-11-30] MEDS ORDERED: MINERAL OIL 30 ML ORAL LIQD PO PRN (09:32)
[2020-11-30] MEDS ORDERED: miSOPROStol 200 MCG TAB PR PRN (09:32)
[2020-11-30] MEDS ORDERED: ePHEDrine SULFATE 50 MG/1 ML INJ IV PRN ×2 (09:32→19:33)
[2020-11-30] MEDS ORDERED: METHYLERGONOVINE MALEATE 0.2 MG/ML VIAL IM PRN (09:32)
[2020-11-30] MEDS ORDERED: OXYTOCIN 10 UNIT/1 ML INJ IM PRN (09:32)
[2020-11-30] MEDS ORDERED: TERBUTALINE 1 MG/1 ML INJ SUB-Q PRN (09:32)
[2020-11-30] MEDS ORDERED: fentaNYL 100 MCG/2 ML INJ IV PRN (09:32)
[2020-11-30] MEDS ORDERED: LOPERAMIDE 2 MG CAP PO PRN (09:32)
[2020-11-30] MEDS ORDERED: BUTORPHANOL 2 MG/1 ML INJ IV PRN (09:32)
--- NOTE | 2020-11-30 09:35 | Ultrasound Report ---
ULTRASOUND BIOPHYSICAL PROFILE INDICATION / CLINICAL INFORMATION: WELL BEING. COMPARISON: Biophysical profile 11/29/2020 FINDINGS: BREATHING MOVEMENT = 0 GROSS BODY MOVEMENT = 2 TONE = 2 QUALITATIVE AMNIOTIC FLUID VOLUME = 2 TOTAL BIOPHYSICAL SCORE = 6/8 PRESENTATION: Cephalic. HEART RATE (beats per minute): 125 ADDITIONAL FINDINGS: None. IMPRESSION: 1. Biophysical Score = 6/8 Signer Name: Enrrique Howe MD Signed: 11/30/2020 9:30 AM Workstation Name: [id number]
--- NOTE | 2020-11-30 09:40 | Progress Note ---
Assessment and Plan INDUCE LABOR WITH PITOCIN. Subjective Date of service: 11/30/20 Principal diagnosis: 39 WK IUP, BORDERLINE BPP Objective - Constitutional Vitals: Vital Signs - 12hr 11/30/20 07:15 Temperature 97.9 F General appearance: Present: no acute distress, well-nourished - Genitourinary Female genitourinary: other (2CMS,75%,-4, BOW INTACT) Medications & Allergies - Medications Allergies/Adverse Reactions: Allergies Fish Containing Products Allergy (Verified 10/31/17 12:37) Anaphylaxis lactose Allergy (Verified 10/31/17 12:37) Vomiting shellfish derived Allergy (Verified 10/31/17 12:37) Anaphylaxis Home Medications: Home Medications Medication Instructions Recorded Confirmed Last Taken Type Ondansetron HCl [Zofran] 4 mg PO Q4HR PRN 15 Days #40 tablet 09/23/20 Unknown Rx Docusate Sodium [Colace] 100 mg PO BID PRN #30 capsule 10/09/20 Unknown Rx Active Medications: Generic Name Dose Route Start Last Admin Trade Name Freq PRN Reason Stop Dose Admin Acetaminophen 650 mg 11/29/20 23:31 Acetaminophen 325 Mg Tab PO Q4H PRN Pain MILD(1-3)/Fever >100.5/MCCORMACK Butorphanol Tartrate 2 mg 11/30/20 09:32 Butorphanol 2 Mg/1 Ml Inj IV Q2H PRN Pain , Severe (7-10) Carboprost Tromethamine 250 mcg 11/30/20 09:32 Carboprost Tromethamine 250 Mcg/1 Ml Inj IM ONCE PRN Uterine Bleeding Ephedrine Sulfate 10 mg 11/30/20 09:32 Ephedrine Sulfate 50 Mg/1 Ml Inj IV Q2M PRN Hypotension Fentanyl 100 mcg 11/30/20 09:32 Fentanyl 100 Mcg/2 Ml Inj IV Q2H PRN Pain,Severe (7-10) LABOR PAIN Lactated Ringer's 1,000 mls @ 125 mls/hr 11/29/20 23:45 Lactated Ringers IV DIRECT YOHANNES Oxytocin/Sodium Chloride 30 units in 500 mls @ 2 mls/hr 11/30/20 10:00 Pitocin/Ns 30 Unit/500ml IV TITR YOHANNES Protocol Lactated Ringer's 1,000 mls @ 125 mls/hr 11/30/20 09:45 Lactated Ringers IV DIRECT YOHANNES Oxytocin/Sodium Chloride 30 units in 500 mls @ 40 mls/hr 11/30/20 10:00 Pitocin/Ns 30 Unit/500ml IV TITR YOHANNES Protocol Lidocaine 20 ml 11/30/20 09:32 Lidocaine (2%) 20 Mg/1 Ml Vial 20 Ml Mdv INFILTRATI 11/30/20 09:33 ONCE ONE Loperamide HCl 2 mg 11/30/20 09:32 Loperamide 2 Mg Cap PO ONCE PRN give with Hemabate Methylergonovine Maleate 0.2 mg 11/30/20 09:32 Methylergonovine Maleate 0.2 Mg/Ml Vial IM ONCE PRN Uterine Bleeding Mineral Oil 30 ml 11/30/20 09:32 Mineral Oil 30 Ml Oral Liqd PO QHS PRN Constipation Misoprostol 800 mcg 11/30/20 09:32 Misoprostol 200 Mcg Tab AZ ONCE PRN Uterine Bleeding Multivitamins/Iron/Calcium 1 each 11/30/20 10:00 [id number] Fumarate-Folic Acid Vit Tab PO QDAY [facility] Oxytocin 10 unit 11/30/20 09:32 Oxytocin 10 Unit/1 Ml Inj IM ONCE PRN Uterine Bleeding Terbutaline Sulfate 0.25 mg 11/30/20 09:32 Terbutaline 1 Mg/1 Ml Inj SUB-Q ONCE PRN Hyperstimulation/Hypertonicity
[2020-11-30] MEDS ORDERED: LACTATED RINGERS 1,000 ML IV SCH (09:45)
[2020-11-30] MEDS: PRENATAL VIT27-FE FUMARATE-FOLIC ACID VIT TAB PO SCH (10:00)
[2020-11-30] MEDS ORDERED: OXYTOCIN DRIP 30 UNITS/500 ML BAG IV SCH ×2 (10:00)
[2020-11-30] MEDS ORDERED: LIDOCAINE (2%) 20 MG/1 ML VIAL 20 ML MDV INFILTRATI ONE (11:00)
[2020-11-30] MEDS ORDERED: CARBOPROST TROMETHAMINE 250 MCG/1 ML INJ IM PRN (11:00)
[2020-11-30] MEDS: LACTATED RINGERS 1,000 ML IV SCH ×2 (12:26→23:28)
[2020-11-30] MEDS ORDERED: ONDANSETRON 4 MG/2 ML INJ IV PRN ×2 (13:12→19:33)
[2020-11-30 13:17] LABS: Hematocrit 30.4 % (30.3-42.9); Hemoglobin 10.4 gm/dl (10.1-14.3); Mean Corpuscular HGB Conc 34 % (30-34); Mean Corpuscular Volume 77 fl (79-97); Platelet Count 306 K/mm3 (140-440); Red Blood Count 3.93 M/mm3 (3.65-5.03); Red Cell Distribution Width 14.8 % (13.2-15.2)
[2020-11-30] MEDS ORDERED: NALOXONE 2 MG/2 ML INJ IV PRN (19:33)
[2020-11-30] MEDS ORDERED: diphenhydrAMINE 50 MG/ML VIAL IV PRN (19:33)
[2020-11-30] MEDS ORDERED: LACTATED RINGERS 250 ML IV SOLN IV ONE (19:33)
[2020-11-30] MEDS ORDERED: NalbUPHINE 10 MG/1 ML INJ IV PRN (19:33)
--- NOTE | 2020-11-30 19:58 | Anesthesia Consultation ---
Anesthesia Consult and Med Hx Date of service: 11/30/20 - Airway Anesthetic Teeth Evaluation: Good ROM Head & Neck: Adequate Mental/Hyoid Distance: Adequate Mallampati Class: Class II Intubation Access Assessment: Probably Good - Pulmonary Exam CTA: Yes - Cardiac Exam Cardiac Exam: RRR - Pre-Operative Health Status ASA Pre-Surgery Classification: ASA2 Proposed Anesthetic Plan: Epidural - Pulmonary Hx Smoking: No Hx Asthma: No COPD: No Hx Pneumonia: No Hx Sleep Apnea: No - Cardiovascular System Hx Hypertension: No Hx Heart Attack/AMI: No Hx Angina: No - Central Nervous System Hx Seizures: No Hx Psychiatric Problems: No - Endocrine Hx Renal Disease: No Hx End Stage Renal Disease: No Hx Liver Disease: No Hx Insulin Dependent Diabetes: No Hx Non-Insulin Dependent Diabetes: No Hx Hypothyroidism: No Hx Hyperthyroidism: Yes - Hematic Hx Anemia: Yes (on iron) Hx Sickle Cell Disease: Yes (Trait) - Other Systems Hx Alcohol Use: No
--- NOTE | 2020-11-30 19:59 | Progress Note ---
Labor Epidural - Labor Epidural Start Time: 19:39 Stop Time: 19:50 Performed by:: REED VELEZ Procedure: Patient is requesting epidural for labor and pain. H&P, labs were reviewed. Patient IDed, H&P reviewed, all questions and concerns were answered, and consent was signed. Timeout was performed at bedside. Patient in sitting position. Sterile prep and drape was performed. 3ml of 1% lidocaine skin wheal at L[3]- L [4]. 18-gauge loida epidural needle was advanced to loss of resistance with air technique 6.5cm. Negative CSF negative blood. Epidural catheter advanced to [12] centimeters. [negative] Aspiration [negative] test dose. Sterile dressing applied. Patient tolerated procedure.
[2020-11-30] MEDS: fentaNYL-BUPIV 2 MCG/ML-0.125% 200 MCG/100 ML BAG EPIDURAL SCH (20:00)
[2020-12-01] MEDS: LACTATED RINGERS 1,000 ML IV SCH ×2 (02:57→07:10)
[2020-12-01] MEDS: fentaNYL-BUPIV 2 MCG/ML-0.125% 200 MCG/100 ML BAG EPIDURAL SCH (04:02)
[2020-12-01] MEDS: AMPICILLIN/NS 2 GM/100 ML 2 GM/100 ML BAG IV SCH ×3 (08:16→23:41)
[2020-12-01] MEDS ORDERED: LIDOCAINE 2%/EPINEPHRINE 1:200,000 VIAL (20 ML) INFILTRATI ONE (08:24)
[2020-12-01] MEDS ORDERED: ONDANSETRON 4 MG/2 ML INJ ONE (08:25)
[2020-12-01] MEDS ORDERED: KETOROLAC 30 MG/1 ML INJ ONE (08:25)
[2020-12-01] MEDS ORDERED: LACTATED RINGERS 1,000 ML IV SCH (08:30)
--- NOTE | 2020-12-01 08:32 | Anesthesia Day of Surgery ---
Anesthesia Day of Surgery - Day of Surgery Patient Examined: Yes Patient H&P Reviewed: Yes Patient is NPO: Yes Beta Blockers: No Cardiac Clearance: No Pulmonary Clearance: No Zane's Test: N/A
[2020-12-01] MEDS: GENTAMICIN/NS 100 MG/100 ML 100 MG/100 ML BAG IV SCH ×2 (08:44→16:30)
[2020-12-01] MEDS ORDERED: ACETAMINOPHEN 325 MG TAB PO ONE (09:00)
[2020-12-01] MEDS ORDERED: METOCLOPRAMIDE 10 MG/2 ML INJ IV ONE (09:00)
[2020-12-01] MEDS ORDERED: OXYTOCIN DRIP 30 UNITS/500 ML BAG IV SCH ×2 (09:00→11:00)
[2020-12-01] MEDS ORDERED: FAMOTIDINE 20 MG/2 ML INJ IV ONE (09:00)
[2020-12-01] MEDS ORDERED: GENTAMICIN 100 MG in SODIUM CHLORIDE 0.9% 100 ML IV SCH (09:00)
[2020-12-01] MEDS ORDERED: BICITRA ORAL LIQD 30ML PO ONE (09:00)
[2020-12-01] MEDS ORDERED: ceFAZolin/Water 2 GM/20 ML 2 GM/20 ML SYRINGE IV NR (09:00)
[2020-12-01] MEDS ORDERED: BUPIVACAINE/PF (0.25%) 2.5 MG/ML 30 ML VIAL INFILTRATI ONE (09:06)
[2020-12-01] MEDS ORDERED: OXYTOCIN 10 UNIT/1 ML INJ ONE (09:27)
[2020-12-01] MEDS ORDERED: NALOXONE 0.4 MG/1 ML INJ IV PRN (10:03)
[2020-12-01] MEDS ORDERED: SIMETHICONE 80 MG CHEW TAB PO PRN (10:03)
[2020-12-01] MEDS ORDERED: LANOLIN/ZINC/DIMETHICONE (LANSINOH) 7 GM TP PRN (10:03)
[2020-12-01] MEDS ORDERED: KETOROLAC 30 MG/1 ML INJ IV PRN (10:03)
[2020-12-01] MEDS ORDERED: WITCH HAZEL/ GLYCERIN PAD TP PRN (10:03)
[2020-12-01] MEDS ORDERED: MORPHINE 4 MG/1 ML INJ IV PRN (10:03)
--- NOTE | 2020-12-01 10:13 | Procedure Note ---
Date of procedure: 12/01/20 Pre-op diagnosis: 39 wks IUP, FAILURE TO PROGRESS, TACHYCARDIA Post-op diagnosis: same Procedure: This patient was taken to the section room and made ready for a primary low transverse section she had an indwelling Camargo catheter and she was given epidural anesthetic adequate enough for the procedure. section she had a liveborn male infant Apgars 8 9 weight 5 pounds 12 ounces. IV fluid was 1400 cc urine was 50 cc estimated blood loss was 500 cc. Complications none Timeout was done everybody concurred. We made a low Pfannenstiel incision with a scalpel into the abdominal cavity anatomically vesicouterine peritoneum was opened transversely with Metzenbaums and pickups smooth. A low transverse incision made in lower uterine segment with the scalpel and fetus in occiput posterior presentation was then delivered without incident the cord was doubly clamped and cut and passed off the table to the nurses in attendance cord blood was obtained the placenta was then delivered manually intact uterus then delivered X abdominally. Subsequently will clean the debris and tissue that was in the abdominal cavity uterine anterior incision was repaired in 2 layers first layer was in a deep manage using running locking #0 chromic secondary to superficial myometrium running locking chromic the vesicouterine peritoneum was repaired running 2-0 chromic on a GI needle tubes and ovaries appeared to be normal no adhesions in the pelvis the uterus was dropped back down into the abdominal cavity gutters were cleaned of debris membranes and tissue all instruments were removed from abdominal cavity instrument count needle lap and sponge count was correct anterior abdominal peritoneum was repaired running 2-0 chromic fascia repaired running locking #0 Vicryl subcutaneous is repaired running 2-0 chromic skin was repaired running subcuticular 4-0 Vicryl on a Austin needle and drape with Dermabond the patient tolerated procedure well she was then returned to recovery room in stable condition end of operative note on Tammi Gleason. Time of surgery was 30 minutes. Anesthesia: epidural Surgeon: CARLITO CRUZ Estimated blood loss: other (500CCS) IV fluids: 1,400 Urine output: 50 Pathology: none Specimen disposition: to lab, discarded Condition: stable Disposition: PACU
--- NOTE | 2020-12-01 10:37 | Progress Note ---
Regional Anesthesia Block - Regional Anesthesia Block Start Time: 10:12 Stop Time: 10:20 Performed By:: REED VELEZ (Layne RAZA) Procedure: Patient consented for TAP block for post surgical pain management. Patient identified, monitors placed, and time out performed. Mid axillary TAP identified bilaterally via ultrasound. Skin prepped bilaterally with [chlorhexidine] and [20g stimuplex] needle advanced to the TAP. 30ml [Marcaine 0.25% with 25mcg Precedex and Decadron 5mg] injected under ultrasound guidance on the [left] side. 30ml [Marcaine 0.25% with 25mcg Precedex and Decadron 5mg] injected under ultrasound guidance on the [right] side. Negative aspiration every 5mL, Patient tolerated the procedure well. No apparent complications seen.
[2020-12-01 16:03] LABS: Alanine Aminotransferase 9 units/L (7-56); Albumin 2.7 g/dL (3.9-5); Blood Urea Nitrogen 4 mg/dL (7-17); Calcium 8.1 mg/dL (8.4-10.2); Hemolysis Index 6
[2020-12-01 16:04] LABS: BUN/Creatinine Ratio 8
--- NOTE | 2020-12-01 16:54 | Post Anesthesia Evaluation ---
- Post Anesthesia Evaluation Patient Participated: Yes Airway Patent: Yes Stable Respiratory Function: Yes Nausea/Vomiting: No Temp > 96.8F: Yes Pain Manageable: Yes Adequeate Hydration: Yes Anesthesia Complications: No Block Receding Appropriately: Yes Patient on Ventilator: No
[2020-12-01] MEDS: PRENATAL VIT27-FE FUMARATE-FOLIC ACID VIT TAB PO SCH (16:59)
[2020-12-01] MEDS: HYDROcodone/ACETAMINOPHEN 5-325 MG TAB PO PRN (21:58)
[2020-12-01] MEDS ORDERED: D5W/LACTATED RINGERS 1,000 ML IV SCH (23:00)
[2020-12-02 00:52] LABS: Hematocrit 28.7 % (30.3-42.9); Hemoglobin 9.6 gm/dl (10.1-14.3)
[2020-12-02] MEDS: GENTAMICIN/NS 100 MG/100 ML 100 MG/100 ML BAG IV SCH ×2 (01:48→13:28)
[2020-12-02] MEDS: HYDROcodone/ACETAMINOPHEN 5-325 MG TAB PO PRN ×4 (05:39→23:28)
[2020-12-02] MEDS: AMPICILLIN/NS 2 GM/100 ML 2 GM/100 ML BAG IV SCH ×3 (05:41→16:46)
[2020-12-02] MEDS: FERROUS SULFATE 325 MG TAB PO SCH (09:53)
[2020-12-02] MEDS: PRENATAL VIT27-FE FUMARATE-FOLIC ACID VIT TAB PO SCH (09:53)
--- NOTE | 2020-12-02 12:10 | Progress Note ---
Assessment and Plan - Patient Problems (1) S/P Current Visit: Yes Status: Acute Plan to address problem: Doing well in the /postoperative state. POD1. No bandage noted on today's exam Meeting goals. Anticipate discharge in 24-48 hours Subjective - Subjective Date of service: 12/02/20 Principal diagnosis: POD1 c/s Interval history: Patient doing well in the state. Reports pain well controlled. Urinating spontaneously. Tolerating po. + flatus. Denies PIH symptoms. Patient reports: appetite normal, voiding normally, pain well controlled, flatus, ambulating normally [place]: doing well Objective - Vital Signs Latest vital signs: Vital Signs Temp Pulse Resp BP BP Pulse Ox 12/02/20 08:40 97.8 F 83 18 125/86 12/02/20 05:39 20 12/02/20 04:30 98.6 F 78 18 119/78 12/02/20 01:36 98.0 F 72 18 121/72 100 12/01/20 21:58 20 12/01/20 20:33 144/94 12/01/20 20:25 98.0 F 71 18 134/78 99 12/01/20 16:52 97.8 F 63 18 120/80 99 Intake and Output 12/01/20 12/02/20 12/02/20 23:59 07:59 15:59 Intake Total 1160 200 240 Output Total 2600 1800 Balance -1440 -1600 240 Intake: IV 200 200 AMPICILLIN/NS 2 GM/100 ML 100 200 2 gm In 100 ml @ 100 mls /hr IV Q6H [facility] Rx#: [id number] GENTAMICIN/NS 100 MG/100 100 ML 100 mg In 100 ml @ 200 mls/hr IV Q8H [facility] Rx#: [id number] Oral 240 240 Intake, Free Water 720 Output: Urine 2600 1800 Indwelling Catheter 2600 Void 1800 Other: Total, Intake Amount 240 240 Total, Output Amount 400 600 # Voids Void 1 1 # Bowel Movements 1 - Exam Abdomen: Present: normal appearance, normal bowel sounds Uterus: Present: fundal height below umbilicus Incision: Present: normal - Labs Labs: Abnormal lab results 12/01/20 12/02/20 Range/Units 15:04 00:08 Hgb 9.6 L (10.1-14.3) gm/dl Hct 28.7 L (30.3-42.9) % Sodium 136 L (137-145) mmol/L Carbon Dioxide 20 L (22-30) mmol/L BUN 4 L (7-17) mg/dL Creatinine 0.5 L (0.6-1.2) mg/dL Calcium 8.1 L (8.4-10.2) mg/dL Alkaline Phosphatase 210 H (35-129) units/L Total Protein 6.0 L (6.3-8.2) g/dL Albumin 2.7 L (3.9-5) g/dL
[2020-12-02] MEDS ORDERED: oxyCODONE /ACETAMINOPHEN 5-325MG TAB PO PRN (16:22)
[2020-12-03] MEDS: HYDROcodone/ACETAMINOPHEN 5-325 MG TAB PO PRN ×2 (05:17→11:42)
[2020-12-03] MEDS: FERROUS SULFATE 325 MG TAB PO SCH (09:39)
[2020-12-03] MEDS: PRENATAL VIT27-FE FUMARATE-FOLIC ACID VIT TAB PO SCH (09:39)
--- NOTE | 2020-12-03 11:49 | Discharge Summary ---
Providers - Providers Date of Admission: 11/29/20 23:31 Date of discharge: 12/03/20 Attending physician: CARLITO CRUZ MD Primary care physician: DEMARCO GAUTAM Hospitalization Reason for admission: active labor, IUP at term Delivery: Procedure: primary low transverse Episiotomy: none Laceration: none Incision: normal, suppurative, intact Other procedures: none complications: none Discharge diagnosis: IUP at term delivered [place] baby: male Hospital course: Pt [facility] in active [facility] and had a primary LTCS r/t failure to progress. See H&P. delivery summary, and pp notes. Condition at discharge: Stable Disposition: DC- TO HOME OR SELFCARE Plan - Discharge Medications Prescriptions: Ferrous Sulfate [Feosol 325 MG tab] 325 mg PO QDAY #90 tablet - Provider Discharge Summary Activity: routine, no sex for 6 weeks, no heavy lifting 4 weeks, no strenuous exercise Diet: other (high in Fe) Instructions: routine Additional instructions: [] Smoking cessation referral if applicable(refer to patient education folder for contact #) [] Refer to [facility] Booklet Call your doctor immediately for: * Fever > 100.5 * Heavy vaginal bleeding ( >1 pad per hour) * Severe persistent headache * Shortness of breath * Reddened, hot, painful area to leg or breast * Drainage or odor from incision. * Keep incision clean and dry at all times and follow doctor's instructions regarding bathing/showering - Follow up plan Follow up: DEMARCO GAUTAM MD [Primary Care Provider] - 14 Days Forms: [facility] Discharge Summary
[2020-12-03 13:16] VITALS: BP 130/71
== END 2020-12-03 13:10 | disposition home or self-care (01) | DRG 766 ==
LOC: TRG 19:52 → APU 19:54 → TRG 23:31 → LD 23:31 → OBSVTOIN 23:31 → APU 11-30 09:36 → LD 11-30 09:36 → OB 12-01 11:13
PROC: 10D00Z1 Extraction of Products of Conception, Low, Open Approach (ICD-10-PCS; principal; 2020-12-01)
PROC: 3E0R3BZ Introduction of Anesthetic Agent into Spinal Canal, Percutaneous Approach (ICD-10-PCS; 2020-12-01)
DX: O76 Abnormality in fetal heart rate and rhythm complicating labor and delivery (principal); O99.02 Anemia complicating childbirth; D57.3 Sickle-cell trait; E05.90 Thyrotoxicosis, unspecified without thyrotoxic crisis or storm; O62.0 Primary inadequate contractions; Z3A.39 39 weeks gestation of pregnancy; Z37.0 Single live birth; Z20.822 Contact with and (suspected) exposure to COVID-19; Z88.8 Allergy status to other drugs, medicaments and biological substances; Z91.013 Allergy to seafood; O99.284 Endocrine, nutritional and metabolic diseases complicating childbirth
CPT/HCPCS: 36415; 76815; 76819; 80053; 85014; 85018; 85027; 86850; 86900; 86901; 96360; 99211; G0378; G0463; J0290; J1580; J1885; J2270; J2405; J2590; J2765; J7120; J7121; U0003